=== PATIENT | female | born 1945 | race American Indian/Alaskan Native ===

== ENCOUNTER 2017-11-30 13:30 | Outpatient (CLI) | payer MEDICARE ==
--- NOTE | 2017-11-30 22:46 | XRay Report ---
FINAL REPORT EXAM: XR KNEE 4+V LT TECHNIQUE: Four views of the left knee: AP, oblique, lateral and sunrise views. PRIORS: None. FINDINGS: Surgical changes from a prior total knee arthroplasty with patellar resurfacing are present. The femoral and tibial components appear well-seated. There is mild medial and anterior soft tissue swelling suggested and small volume knee joint effusion. No periprosthetic fracture. Mild degenerative changes of the proximal tibiofibular articulation. On the sunrise projection, there is mild lateral subluxation and moderate lateral patellar tilt. IMPRESSION: No acute osseous abnormality. Soft tissue swelling and small volume joint effusion. Lateral patellar tilt and subluxation. Correlation with clinical exam requested for evidence of medial patellofemoral retinacular injury. HISTORY:
== END 2017-11-30 13:31 | disposition home or self-care (01) ==
LOC: SPVIMAG 13:30
PROVIDERS: ATTEND Orthopaedic Surgery Sports Medicine
DX: S83.012A Lateral subluxation of left patella, initial encounter (principal); Z96.652 Presence of left artificial knee joint; X58.XXXA Exposure to other specified factors, initial encounter; Y93.89 Activity, other specified; Y92.89 Other specified places as the place of occurrence of the external cause; Y99.8 Other external cause status